=== PATIENT | female | born 1960 | race Caucasian/White ===

== ENCOUNTER 2020-05-28 17:54 | Emergency (ER) | payer MEDICARE, MEDICAID ==
[~2020-05-28] VITALS: Ht 157.5 cm; Wt 61.4 kg
[2020-05-28 18:13] VITALS: BP 148/101
== END 2020-05-28 19:45 | disposition home or self-care (01) ==
LOC: ER 17:56
DX: R50.9 Fever, unspecified (principal); Z20.822 Contact with and (suspected) exposure to COVID-19; F17.200 Nicotine dependence, unspecified, uncomplicated; Z56.0 Unemployment, unspecified
CPT/HCPCS: 36415; 99283; U0003

== ENCOUNTER 2022-04-30 10:37 | Emergency (ER) | payer MEDICARE, MEDICAID ==
[~2022-04-30] VITALS: Ht 157.5 cm; Wt 63.6 kg
--- NOTE | 2022-04-30 12:10 | NUR ---
PT NOT IN LOBBY, UNABLE TO OBTAIN VITAL SIGNS.
[2022-04-30] MEDS ORDERED: baclofen 10mg tablet PO STA (17:27)
[2022-04-30] MEDS ORDERED: ketorolac trometh inj. 60 MG/2 ML VIAL IM ONE (17:30)
[2022-04-30 17:46] VITALS: BP 162/95
[2022-04-30 18:19] LABS: CLARITY,URINE SLIGHTLY CLOUDY (Clear); COLOR,URINE YELLOW (Yellow); GLUCOSE, URINE NEGATIVE (Neg); KETONES,URINE TRACE mg/dl (Neg); LEUKOCYTE ESTERASE ,URINE NEGATIVE (Neg); NITRITES, URINE NEGATIVE (Neg); OCCULT BLOOD,URINE TRACE-INTACT (Neg); PROTEIN,URINE NEGATIVE (Neg); UROBILINOGEN,URINE 0.2 E.U/dL (0.2-1.0)
[2022-04-30 18:24] LABS: UA COLLECTION TYPE CLN CATCH MIDSTREAM
[2022-04-30 18:29] LABS: BACTERIA,URINE 1+ /HPF (Neg); MUCUS STRANDS FEW /LPF (Neg); SQUAMOUS EPITHELIAL CELL,UR FEW /LPF (FEW)
[2022-04-30] MEDS ORDERED: BACL-11 PO (18:46)
== END 2022-04-30 19:05 | disposition home or self-care (01) ==
LOC: ER 10:38
DX: S29.012A Strain of muscle and tendon of back wall of thorax, initial encounter (principal); M62.830 Muscle spasm of back; G89.29 Other chronic pain; M54.50 Low back pain, unspecified; Z88.1 Allergy status to other antibiotic agents; Z88.2 Allergy status to sulfonamides; Z88.8 Allergy status to other drugs, medicaments and biological substances; Z87.891 Personal history of nicotine dependence; Z56.0 Unemployment, unspecified; X58.XXXA Exposure to other specified factors, initial encounter; Y93.89 Activity, other specified; Y92.89 Other specified places as the place of occurrence of the external cause; Y99.8 Other external cause status
CPT/HCPCS: 81001; 87088; 96372; 99285; J1885